=== PATIENT | male | born 1965 | race Caucasian/White ===

== ENCOUNTER 2017-08-03 10:40 | Inpatient (IN) | payer OTHER ==
[2017-08-03 14:27] LABS: Urine Appearance CLEAR; Urine Bilirubin NEGATIVE (NEG); Urine Blood 1+ (NEG); Urine Color YELLOW; Urine Glucose 3+ (NEG); Urine Protein 2+ (NEG); Urine Specific Gravity 1.015 (1.005-1.030); Urine Urobilinogen 0.2 mg/dL (0.2-1.0)
[2017-08-03 14:33] LABS: Urine Microscopic Reflex ORDER UMIC
[2017-08-03 15:14] LABS: Urine Bacteria NONE SEEN /HPF (NONE SEEN); Urine RBC <5 /HPF (NONE SEEN)
[2017-08-03 15:15] LABS: Urine Culture Reflex Order NOT NEEDED
[2017-08-03] MEDS ORDERED: D50W 25 GM/50 ML SYRINGE IV PRN ×2 (16:05→21:46)
[2017-08-03] MEDS ORDERED: GLUCAGON 1 MG/VIAL IM PRN ×2 (16:05→21:46)
[2017-08-03] MEDS: INSULIN -REGULAR HUMAN 50 UNIT/0.5 ML ML SQ SCH ×2 (17:07→21:00)
[2017-08-03] MEDS ORDERED: INSULIN -REGULAR HUMAN 50 UNIT/0.5 ML ML IV ONE ×2 (17:15→19:14)
[2017-08-03] MEDS ORDERED: NA CHLORIDE 0.9% 1,000 ML IV SCH (22:00)
[2017-08-03] MEDS: NA CHLORIDE 0.9% 1,000 ML IV SCH (22:00)
--- NOTE | 2017-08-03 22:23 | RAD REPORT ---
EXAM DESCRIPTION: CT - Abdomen Pelvis Wo Contrast - 08/03/2017 10:09 pm CLINICAL HISTORY: Abdominal pain. Acute kidney injury. COMPARISON: 05/01/2016 CT. 07/27/2017 renal sonogram. TECHNIQUE: CT imaging of the abdomen and pelvis was performed without contrast. Solid organ, bowel a nd vascular assessment is limited due to lack of IV and oral contrast. All CT scans are performed using dose optimization technique as appropriate and may include automated exposure control or mA/KV adjustment according to patient size. FINDINGS: The lower lung hammond are clear. The liver, spleen and adrenal glands appear unremarkable for noncontrast imaging.Pancreatic calcifica tions are noted in the body and head most likely representing chronic pancreatitis. Moderate left hydronephrosis is seen with mild cortical thinning and perinephric fat stranding. Trinity ureter is also noted on the left the level of the iliac artery. The distal left ureter is normal in c aliber. No left-sided genitourinary calculi. Several calcifications are seen inferior collecting system of the right kidney compatible with nephro lithiasis. No significant right-sided hydronephrosis. No gross urinary bladder abnormality. No bowel obstruction, free air, free fluid or abscess. Aortic atherosclerosis. The appendix is not id entified as a discrete structure, however, no secondary findings of appendicitis are identified. Sma ll fat containing right inguinal hernia. The osseous structures are within normal limits. IMPRESSION: Moderate left hydronephrosis and proximal left hydroureter is noted without a radiopaque stones seen. Caliber change in the left ureter is noted as it crosses the left iliac artery which ma y indicate a stricture in this location. Mild left perinephric fat stranding is seen. Right inferior nephrolithiasis, largest measuring 5 mm, without significant hydronephrosis. Chronic pancreatitis. A limited non-contrast examination was performed as detailed.
[2017-08-04 00:34] LABS: Urine Appearance CLEAR; Urine Bilirubin NEGATIVE (NEG); Urine Blood 1+ (NEG); Urine Color YELLOW; Urine Glucose 1+ (NEG); Urine Protein 1+ (NEG); Urine Urobilinogen 0.2 mg/dL (0.2-1.0)
[2017-08-04 00:36] LABS: UR CREAT 25.2 mg/dL; Urine Protein/Creatinine Ratio 1.94 (<0.15)
[2017-08-04 00:37] LABS: Urine Microscopic Reflex ORDER UMIC
[2017-08-04 01:05] LABS: Urine Bacteria <20 /HPF (NONE SEEN); Urine Culture Reflex Order NOT NEEDED; Urine RBC <5 /HPF (NONE SEEN)
--- NOTE | 2017-08-04 02:39 | CON ---
Date of Consultation: 08/03/2017 Additional Consulting Physician: Yaniv Yin M.D. Reason For Consultation: Elevated BUN and creatinine. History Of Present Illness: This is a pleasant 52-year-old gentleman with significant past medical h istory of hypertension, hyperlipidemia, diabetes complicated with neuropathy and nephropathy, and chr onic kidney disease. The baseline that we have back in 2017 in April, creatinine 2.7. GFR at that time of 24. The patient moved from [place] back here, apparently found to have elevated BUN and cr eatinine. For that reason, the patient was referred to Dr. Lisa with creatinine 4.8 and GFR down to 13 with hyperkalemia. For that reason, the patient was referred to the hospital. The patient denied taking nonsteroidals. No contrast. The patient's blood sugar has been uncontrolled. Apparently, t he patient had been seen by Urology, and some workup has been done. Workup in the outpatient setting was repeated. The ultrasound showed that the patient had hydronephrosis, right kidney 12.3, left ki dney 14.4, with chronic left hydronephrosis. A 1-cm stone on the right kidney. The patient was admi tted for further management. Again, the patient denied taking nonsteroidals. No IV contrast. Past Medical History: Includes; 1.Diabetes, complicated with neuropathy and nephropathy. 2.Hypertension. 3.Hyperlipidemia. 4.Chronic kidney disease, stage 4. 5.Nephrolithiasis. Family History: Positive for hypertension. Past Surgical History: Includes cystoscopy. Allergies: NO KNOWN DRUGS ALLERGIES. Social History: Denies smoking. Denies drinking. Denies drug abuse. Review of Systems: Head and Neck: No red eye. No ear pain. Gastrointestinal: No nausea. No vomiting. Genitourinary: No polyuria. No dysuria. No hematuria. Gynecology: Not applicable. Respiratory: No shortness of breath. Cardiovascular: No chest pain. Neurologic: Has neuropathy. Musculoskeletal: Has low back pain. Endocrine: No polydipsia. Skin: No rash. Physical Examination: Vital Signs: When I saw the patient, blood pressure of 158/90, pulse of 75, afebrile. Chest: Clear to auscultation. Heart: S1, S2. Regular. Abdomen: Soft, nontender. Extremities: No edema. Neurologic: Alert and oriented x3. Nonfocal. Laboratory Data: Sodium 137, potassium 5.4, bicarb 24, BUN 69, creatinine 4.8, and calcium 8.3. WBC 12.3, H and H 15.6/47.9, and platelets 285. Urinalysis; specific gravity of 1.015, negative for hem aturia. Medications: Current medications in the hospital include normal saline. Assessment And Plan: 1.Acute kidney injury secondary to glucose diuresis, possible obstructive uropathy on advanced chron ic kidney disease. a.I am going to go ahead and get CT stone protocol. b.I will put the patient on Flomax. We will start the patient on aggressive hydration, and we will consult Urology. 2.Hyperglycemia, with glucose diuresis. We will start aggressive hydration. We will resume insulin . 3.Hypertension, controlled, not optimal. I am going to add Norvasc. We will start beta-rogelio, an d we will start Flomax. 4.Nephrolithiasis, with obstructive uropathy, possible chronic. Given the acute kidney injury, we w ill get CT with contrast. We will get Urology and start the patient on Flomax. Case was discussed with the patient. He verbalized understanding. Discussed with the primary nurse. MADDY Voice ID: [id number] Report ID: [id number]
[2017-08-04 05:58] LABS: Albumin 3.1 g/dL (3.2-5.5); Phosphorus 6.1 mg/dL (2.5-4.3); Potassium 4.1 mEq/L (3.6-5.0); Thyroid Stimulating Hormone 0.71 uIU/mL (0.34-5.60)
[2017-08-04 06:00] LABS: Magnesium 1.4 mg/dL (1.8-2.5)
[2017-08-04] MEDS: CARVEDILOL 3.125 MG TAB PO SCH ×2 (06:00→17:08)
[2017-08-04] MEDS ORDERED: Magnesium Sulfate 2gm IVPB 2 G/50 ML BAG IV ONE (06:39)
[2017-08-04] MEDS: CALCIUM CARBONATE CHEW 500MG TAB PO SCH ×3 (07:30→16:30)
[2017-08-04] MEDS: TAMSULOSIN 0.4 MG SR CAP PO SCH (09:34)
[2017-08-04] MEDS: AMLODIPINE 10 MG TAB PO SCH (09:34)
[2017-08-04] MEDS: INSULIN DETEMIR 100 UNIT/1 ML INSULIN SQ SCH (09:35)
[2017-08-04] MEDS: INSULIN -REGULAR HUMAN 50 UNIT/0.5 ML ML SQ SCH ×4 (09:35→20:48)
[2017-08-04] MEDS: NA CHLORIDE 0.9% 1,000 ML IV SCH ×2 (09:36→17:08)
--- NOTE | 2017-08-04 19:30 | CON ---
History Of Present Illness: A 52-year-old gentleman with history of lower urinary symptomatology, de crease in force of stream, frequency, some nocturia. Never had official BPH treatment before. 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 GFR 24. The patient w as moved from [place] to [place]. He was referred to Dr. Lisa for elevated creatinine of 4.8 and GFR down to 13 and hyperkalemia. Therefore, he was admitted to the hospital for this. He had a CT scan showing hydronephrosis of the left kidney down to the left iliac area with hydroureter. Also the ri ght kidney shows some smaller and has some hydronephrosis and hydroureter of proximal ureter. His bl adder was distended. I am diagnosed with obstructive uropathy. At this point, CT also showed a 1 cm stone in the right kidney that was nonobstructive. The patient needs a Rockwell catheter at this time. Past Medical History: Diabetes complicated with nephropathy and neuropathy, hypertension, hyperlipid emia, chronic kidney disease stage 4, nephrolithiasis, obstructive uropathy. Family History: Positive for hypertension. Past Surgical History: Colonoscopy, lithotripsy for kidney stones. Allergies: NO KNOWN DRUG ALLERGIES. Social History: Denies smoking. Denies drinking or drug use. Review of Systems: A 10-point review of systems are normal. HEENT: No redness. No ear pain. GI: No nausea or vomiting. Genitourinary: As mentioned above. Respiratory: No shortness of breath. Cardiovascular: No chest pain. Neurologic: Has neuropathy. Musculoskeletal: Low back pain. Endocrine: No polydipsia. No polyuria. Skin: No rashes. Physical Examination: Vital Signs: 97.7, 69, 16, 134/70, saturations 96%. I's and O's, 210 and 2200 and urine output appr oximately 930. HEENT: Atraumatic, normocephalic. Lungs: Clear. Heart: S1, S2. Abdomen: Soft, nontender. : Both testicles are descended, nontender, no masses. Phallus circumcised. No lesions. ZION prox imally at 35. Slightly enlarged prostate gland, but not severely enlarged. Extremities: Normal range of motion. Laboratory Data: Sodium 134, potassium 4.1, chloride 104, carbon dioxide 21, BUN 75, creatinine 4.24 , GFR 15, glucose 194 . Calcium 7.1; phosphorus 6.1; magnesium is 1.4, low; albumin 3.1, l ow. TSH 0.7. He had a PSA test done in the past. His PSA was 0.7 in July 27, 2017. Assessment: Obstructive uropathy, bilateral hydronephrosis, right kidney small than the left. Plan: To place Rockwell catheter. We will clamp the Rockwell catheter for 300 cc, then release 300 cc ove r 15 minutes until it is empty. The patient may go into postobstructive diuresis. Encouraged also e xtra fluids by bedside, and continue hydration. YANIRA/SUNNYL Voice ID: [id number] Report ID: [id number]
--- NOTE | 2017-08-04 19:45 | HP ---
Date of Admission: 08/03/2017 Chief Complaint: Acute on chronic renal failure. History Of Present Illness: A 52-year-old male, who was seen in the office last week, had elevated B UN, creatinine. However, he refused admission and further management. He was given Kayexalate for h is hyperkalemia, referred to a caponizer. The patient saw the caponizer, and the patient is ad mitted because of possibility of worsening of kidney function due to his hydronephrosis. Past Medical History: 1.Positive for type 2 diabetes. 2.Chronic renal failure. 3.Hypertension. 4.Hyperlipidemia. 5.Nephrolithiasis. Past Surgical History: Negative. Home Medicines: Please refer to the chart. Review of Systems: No chest pain. Physical Examination: General: Revealed a 52-year-old male, not in pain. HEENT: Negative. Neck: Supple. JVD negative. Chest: Clear. Heart: Regular. Abdomen: Soft. Extremities: No edema. Neurologic: Negative. Laboratory Data: Potassium 5.4, BUN 69, creatinine 4.8. WBC 12.3. Assessment: 1.Acute on chronic renal failure. 2.Type 2 diabetes requiring insulin. 3.Hypertension. 4.Hyperlipidemia. 5.History of kidney stones. Plan: The patient is being seen by Urology and he is going to have cystoscopy and probable stent ryan cement. Meanwhile, his sugars will be controlled with aggressive sliding scale. KEVIN/ZARA Voice ID: [id number]
[2017-08-04] MEDS ORDERED: ZOLPIDEM TARTRATE 5 MG TABLET PO PRN (22:37)
[2017-08-05] MEDS: NA CHLORIDE 0.9% 1,000 ML IV SCH (04:30)
--- NOTE | 2017-08-05 05:25 | PN ---
Date of Progress Note: 08/04/2017 Subjective: The patient was admitted with acute kidney injury on chronic kidney disease, advanced, s econdary to obstructive uropathy and prerenal glucose diuresis. The patient's creatinine GFR around 27. According to the patient underwent a couple of lithotripsies with cystosco py in [place]. Then, apparently, he was discharge. He was supposed to follow up with his urologist ; but apparently because of financial issue, the patient did not follow up. The patient came to Dr. Lisa and was found to have indication in BUN and creatinine. For that reason, the patient was admitt ed. Physical Examination: Vital Signs: Blood pressure 163/85, pulse of 75, and afebrile. Chest: Clear to auscultation. Heart: S1, S2. Regular. Abdomen: Soft and nontender. Extremities: No edema. Laboratory Data: Sodium 134, potassium 4.1, bicarb 21, BUN 75, creatinine 4.2, and GFR of 15. Medications: Reviewed. The patient is on Flomax and Coreg. Hepatitis is still pending. Assessment And Plan: 1.Acute kidney injury, multifactorial, secondary to slow progression of the disease. 2.Obstructive uropathy. 3.Glucose diuresis, prerenal. 4.I am going to continue hydration and continue Flomax. We will follow up with Urology today. Plan for cystoscopy and stent placement. 5.Hypertension, uncontrolled. I am going to go ahead and add calcium channel rogelio, increase carv edilol, and we will follow up. 6.Nephrolithiasis, status post lithotripsy. We will follow up with Urology today. 7.Diabetes. Continue sliding scale. Continue hydration. Follow up with the primary. Case was discussed with the patient, verbalized understanding. SKYLA/ZARA Voice ID: [id number] Report ID: [id number]
[2017-08-05] MEDS: CARVEDILOL 3.125 MG TAB PO SCH (05:42)
[2017-08-05 05:47] LABS: Albumin 2.9 g/dL (3.2-5.5); Magnesium 1.7 mg/dL (1.8-2.5); Phosphorus 5.6 mg/dL (2.5-4.3)
[2017-08-05] MEDS: CALCIUM CARBONATE CHEW 500MG TAB PO SCH (07:30)
[2017-08-05] MEDS: INSULIN -REGULAR HUMAN 50 UNIT/0.5 ML ML SQ SCH (08:49)
[2017-08-05] MEDS: INSULIN DETEMIR 100 UNIT/1 ML INSULIN SQ SCH (08:49)
[2017-08-05] MEDS: AMLODIPINE 10 MG TAB PO SCH (08:50)
[2017-08-05] MEDS: TAMSULOSIN 0.4 MG SR CAP PO SCH (08:50)
--- NOTE | 2017-08-06 01:59 | PN ---
Date of Progress Note: 08/05/2017 Chief Complaint: Acute on chronic kidney injury. Subjective: The patient has nonoliguric acute kidney injury secondary to prerenal azotemia, acute tubular necrosis. The patient has history of advanced chronic kidney disease secondary to obstructive uropathy. He developed prerenal azotemia secondary to uncontrolled diabetes with hyperglycemia. Renal function has not improved significantly since yesterday. The patient has a history of kidney stone, underwent lithotripsy with cystoscopy back in [place] several years ago. Subsequently, he had a procedure done for kidney stone when he moved to [place]. Review of Systems: Denies fever, chills. Physical Examination: Lungs: Clear to auscultation bilaterally. Heart: S1, S2. Abdomen: Soft, benign, and nontender. Extremities: No edema. Laboratory Data: Sodium 134, potassium 4.1, bicarbonate 21, BUN of 75, and creatinine 4.2. Blood work obtained today showed minimal improvement of renal function. Sodium 134, potassium 4.0, chloride 105, CO2 20, BUN 64, creatinine 3.7, glucose 182, phosphorus 5.6, magnesium 1.7, albumin 2.9. Impression And Plan: 1. Acute on chronic kidney injury. The patient has multiple medical problems including history of diabetes, obstructive uropathy, and kidney stone. Urology was consulted. 2. The patient developed prerenal azotemia with acute kidney injury and nonoliguric acute tubular necrosis. Continue IV fluids. 3. Mild hypomagnesemia, replacement as needed. Monitor magnesium level closely. 4. Hyperphosphatemia. Start low phosphorus diet and binders. 5. Hyponatremia, mild. Continue IV normal saline for replacement. I spent total 36 min including 26 min to coordinate care plan. BRISEYDA/ZARA Voice ID: [id number] Report ID: [id number] ROWENA
[2017-08-06 12:35] LABS: HBsAG Nonreactive (Nonreactive)
[2017-08-06 13:21] LABS: Hepatitis C Virus RNA (PCR)log <1.18 log IU/mL
== END 2017-08-05 11:10 | disposition left against medical advice (07) | DRG 683 ==
LOC: 2ND 11:40
PROVIDERS: ADMIT Internal Medicine; ATTEND Internal Medicine
DX: N17.0 Acute kidney failure with tubular necrosis (principal); E87.1 Hypo-osmolality and hyponatremia; E11.22 Type 2 diabetes mellitus with diabetic chronic kidney disease; N13.2 Hydronephrosis with renal and ureteral calculous obstruction; I12.9 Hypertensive chronic kidney disease with stage 1 through stage 4 chronic kidney disease, or unspecified chronic kidney disease; N18.9 Chronic kidney disease, unspecified; E78.5 Hyperlipidemia, unspecified
CPT/HCPCS: 36415; 74176; 80069; 81003; 81015; 82570; 82947; 82962; 83735; 83970; 84156; 84443; 86317; 86704; 86706; 87340; 87522; J3475; J7030